=== PATIENT | male | born 2000 | race Caucasian/White ===

== ENCOUNTER 2024-01-14 19:02 | Emergency (ER) | payer OTHER, SELFPAY ==
[2024-01-14 19:03] VITALS: BP 144/84; PULSE 77; RESP 18; TEMP 37.3; O2SAT 99; BMI 32.5
--- NOTE | 2024-01-14 19:03 | XRR_ITS ---
PROCEDURE INFORMATION: Exam: XR Left Knee Exam date and time: 01/14/2024 7:18 PM Age: 23 years old Clinical indication: Injury or trauma; Other: Unknown; Injury details: Patient states fall from about 10ft onto left knee TECHNIQUE: Imaging protocol: Radiologic exam of the left knee. Views: 3 views. COMPARISON: No relevant prior studies available. FINDINGS: Bones/joints: Nondisplaced, likely comminuted fracture along the posterior tibial plateau, best seen on the lateral view. Trace joint effusion. Soft tissues: Normal. XR/XR knee LT 3V* [id number] IMPRESSION: Nondisplaced posterior tibial plateau fracture.
--- NOTE | 2024-01-14 19:59 | ED_ITS ---
HPI - Extremity Problem General: Chief complaint: Extremity Injury, Lower Stated complaint: fall 10 ft5 Left knee Time Seen by Provider: 01/14/24 19:05 Source: patient Mode of arrival: ambulatory Limitations: no limitations History of Present Illness: Patient is a 23-year-old male who presents to the emergency department with a left knee injury that occurred hours prior to arrival. He states that he fell approximately 10 feet down a hole, from first floor to the basement and landed directly to anterior left knee. No prior surgeries, fractures, or injuries of the knee. He states he smoked marijuana for his pain, this did not do much but he has not taken anything else for the pain. He has remained ambulatory, no distal neurovascular symptoms reported. Minor pain reported at this time. MD Complaint: joint pain Onset (ago): hour(s) Pain Consistency: constant Location: left and knee Radiation: none Associated symptoms: Deny chest pain, fever(s) or rash Related Data Home Medications Medication Instructions Recorded Confirmed No Known Home Medications 01/20/23 01/20/23 Allergies Allergy/AdvReac Type Severity Reaction Status Date / Time No Known Allergies Allergy Unverified 01/20/23 14:44 Review of Systems General: Reports: 10 or more systems reviewed and unremarkable except in HPI and below Const: Denies: fever(s) or chills Card: Denies: chest pain Resp: Denies: dyspnea or productive cough GI: Denies: abdominal pain, nausea, vomiting or diarrhea : Denies: flank pain Musc: Reports: joint pain; Denies: neck pain, back pain, extremity pain, extremity swelling, joint swelling, joint redness, joint warmth, limited range of motion or muscle weakness Skin/Breast: Denies: rash Neuro: Denies: headache(s), numbness in extremities or weakness in extremities Physical Exam Const: COMMON NORMALS: no acute distress, patient oriented x3, no limitations, healthy appearing, alert and well nourished HENMT: COMMON NORMALS: normocephalic and atraumatic HEAD & SCALP: normocephalic and atraumatic Neck/C-Spine: COMMON NORMALS: full ROM, supple and no meningeal signs Resp: COMMON NORMALS: normal respiratory effort, No use of accessory muscles and clear to auscultation bilaterally AUSCULTATION: clear to auscultation bilaterally Cardio: COMMON NORMALS: regular rate and regular rhythm RATE: regular rate RHYTHM: regular rhythm Extremity: COMMON NORMALS: full ROM, capillary refill normal, no joint enlargement and no clubbing, cyanosis or edema NARRATIVE EXTREMITY EXAM: Some pain with range of motion, flexion at the left knee worse than extension. There is an overlying abrasion to the anterior left knee. No obvious deformity or dislocation. Reproducible tenderness to palpation of the left patella and just inferior to this area. His distal neurovascular exam unremarkable. Neuro: COMMON NORMALS: patient oriented x3, moves all extremities, no focal motor deficits and no sensory deficits noted SENSORIUM/ORIENTATION: Yes alert MENINGEAL SIGNS: Yes no meningeal signs Course Vital Signs: Vital signs: Vital Signs Temperature 99.2 F 01/14/24 19:03 Pulse Rate 87 01/14/24 21:48 Respiratory Rate 18 01/14/24 19:03 Blood Pressure 142/77 01/14/24 21:48 Pulse Oximetry 98 01/14/24 21:48 Oxygen Delivery Me thod Room Air 01/14/24 20:44 MDM - Extremity (Nontraumatic) Medical Decision Making Patient had fell approximately 10 feet hours prior to arrival, remained ambulatory. X-ray showed nondisplaced posterior tibial plateau fracture, this was for further evaluated with a CT to evaluate for any potential vascular issues, of which this did not demonstrate. Consulted Dr. Eid, who states this can be made nonweightbearing put in immobilizer and crutches and referred to outpatient orthopedist. I discussed this plan with patient and mother in the room, they agree with plan and reasons to return discussed. Lab Data Radiology Impressions Knee X-Ray 01/14/24 19:03 IMPRESSION: Nondisplaced posterior tibial plateau fracture. Lower Extremity CT 01/14/24 20:26 IMPRESSION: 1. Nondisplaced posterior tibial plateau fracture involving portions of the tibial spine. 2. Small joint effusion. All radiology interpretation(s) finalized by discharge Discharge Plan Discharge Patient Disposition: Home Clinical Impression: Tibial plateau fracture Qualifiers: Encounter type: initial encounter Fracture type: closed Laterality: left Qualified Code(s): S82.142A - Displaced bicondylar fracture of left tibia, initial encounter for closed fracture Condition: Stable Prescriptions: No Action No Known Home Medications Discharge Orders: Discharge ED (Routine); Ordered 01/14/24 Ordered By: Errol Leonard Other Ambulatory Orders: DME: Cane/ Crutches (Order) Location: None Selected Ordered By: Ani Figueroa Referrals: Marisela Daly APN [Primary Care Provider] - Patient Instructions: Pain Management Activity Restrictions/Additional Instructions: Knee immobilizer and nonweightbearing with crutches as instructed. Follow-up with orthopedics. Tylenol and ibuprofen for pain control, rest and recovery. Return with any new or worsening symptoms. Coding Level of Care Code ED [employer] In[employer] for [employer]hu
--- NOTE | 2024-01-14 20:26 | CTR_ITS ---
PROCEDURE INFORMATION: Exam: CT Left Lower Extremity, Knee Exam date and time: 01/14/2024 8:40 PM Age: 23 years old Clinical indication: Injury or trauma; Fall; Work related; Swelling (edema) and other: Poss tibal plateau FX; Knee; Left; Additional info: Tibial plateau fracture TECHNIQUE: Imaging protocol: CT of the left lower extremity without contrast was performed. Exam focused on the knee. Radiation optimization: All CT scans at this facility use at least one of these dose optimization techniques: automated exposure control; mA and/or kV adjustment per patient size (includes targeted exams where dose is matched to clinical indication); or iterative reconstruction. COMPARISON: CR (LOW EXM, ) 01/14/2024 7:18 PM RADIATION DOSE METRICS: Total DLP (mGy-cm): 416.88 FINDINGS: Bones/joints: Acute, nondisplaced displaced fracture along the posterior tibial plateau involving the posterior aspect of the tibial spine with intra-articular extension. Small joint effusion. Soft tissues: Subcutaneous soft tissue edema along the extensor surface of the knee. CT/CT lower leg LT wo con* [id number] IMPRESSION: 1. Nondisplaced posterior tibial plateau fracture involving portions of the tibial spine. 2. Small joint effusion.
[2024-01-14 20:44] VITALS: PULSE 79; O2SAT 96
--- NOTE | 2024-01-14 20:55 | PC.NURSE ---
no crutches available for pt's height. Shadia Leonard notified.
[2024-01-14 21:48] VITALS: BP 142/77; PULSE 87; O2SAT 98
--- NOTE | 2024-01-15 12:46 | DCPLANNER ---
Message sent to ortho for follow up
--- NOTE | 2024-01-18 06:52 | DCPLANNER ---
Sent Referral to Tameka Jiménez
== END 2024-01-14 21:49 | disposition home or self-care (01) ==
PROVIDERS: Emergency Provider Physician Assistant; PCP Nurse Practitioner Family
DX: S82.142A Displaced bicondylar fracture of left tibia, initial encounter for closed fracture (principal); W17.89XA Other fall from one level to another, initial encounter
CPT/HCPCS: 29530; 73562; 73700; 99284